=== PATIENT | male | born 1955 | race Caucasian/White ===

== ENCOUNTER 2018-10-28 08:39 | Day surgery (SDC) | payer OTHER ==
[~2018-10-28 08:39] MED LIST: Lactated Ringers 1,000 ML IV SCH; Sodium Chloride 0.9% 10 ML SDV IV PRN; Sodium Chloride 0.9% 10 ML Syringe FLUSH PRN; Sodium Chloride 0.9% 2.5 ML Syringe FLUSH PRN; ceFAZolin 1 GM in Premix Bag 1 BAG IV ONE
--- NOTE | 2018-10-28 10:42 | PCM.PREANE ---
Preanesthetic Assessment - Anesthesia/Transfusion/Family Hx Anesthesia History: Prior Anesthesia Without Reaction Family History of Anesthesia Reaction: No Transfusion History: No Prior Transfusion(s) - Review of Systems General: No Symptoms Pulmonary: No Symptoms Cardiovascular: No Symptoms Gastrointestinal: No Symptoms Neurological: No Symptoms Other: Reports: None - Physical Assessment NPO Status Date: 10/27/18 NPO Status Time: 22:30 O2 Sat by Pulse Oximetry: 97 Respiratory Rate: 16 Vital Signs: Last Vital Signs Temp 206.6 F H 10/28/18 08:50 Pulse 68 10/28/18 08:50 Resp 16 10/28/18 08:50 BP 131/83 10/28/18 08:50 Pulse Ox 97 10/28/18 08:50 Height: 5 ft 10 in Weight: 107.501 kg ASA Class: 2 Mental Status: Alert & Oriented x3 Airway Class: Mallampati = 2 Dentition: Reports: [place](s), Bridge ROM/Head Extension: Full Lungs: Clear to Auscultation, Normal Respiratory Effort Cardiovascular: Regular Rate, Regular Rhythm - Allergies Allergies/Adverse Reactions: Allergies Allergy/AdvReac Type Severity Reaction Status Date / Time Tetracyclines Allergy Stomach Verified 10/25/18 16:17 Upset - Blood Blood Available: No - Anesthesia Plan Pre-Op Medication Ordered: None - Acknowledgements Anesthesia Type Planned: General Anesthesia Pt an Appropriate Candidate for the Planned Anesthesia: Yes Alternatives and Risks of Anesthesia Discussed w Pt/Guardian: Yes Pt/Guardian Understands and Agrees with Anesthesia Plan: Yes Additional Comments: anes prob list: copd-uses inhalers, never on O2, no hospitilizations; chronic LBP-uses muscle relaxant prn, GERD, was tested for GAYE a long time ago- was not recommended to be on CPAP, does snore at night and has frequent awakenings. PLAN: ga/lma PreAnesthesia Questionnaire HEENT History: Reports: Other (See Below) Other HEENT History: wears glasses, sarah hearing aids Cardiovascular History: Reports: None Respiratory History: Reports: COPD Gastrointestinal History: Reports: GERD Genitourinary History: Reports: Prostate Disorder Other Genitourinary History: urgency Musculoskeletal History: Reports: Back Pain, Chronic, Fracture Other Musculoskeletal History: hx fx clavicle Neurological History: Reports: Head Trauma, Other (See Below) Other Neuro History: states head injury in the past Psychiatric History: Reports: Anxiety, PTSD Endocrine/Metabolic History: Reports: Obesity/BMI 30+ Hematologic History: Reports: None Immunologic History: Reports: None Oncologic (Cancer) History: Reports: None Dermatologic History: Reports: None - Past Surgical History Head Surgeries/Procedures: Reports: None HEENT Surgical History: Reports: None Cardiovascular Surgical History: Reports: None Respiratory Surgical History: Reports: None GI Surgical History: Reports: None Male Surgical History: Reports: TURP-Transurethral Resection of Prostate Musculoskeletal Surgical History: Reports: Carpal Tunnel, Other (See Below) Other Musculoskeletal Surgeries/Procedures:: hx sarah carpal tunnel release, rt hand surgery Oncologic Surgical History: Reports: None Dermatological Surgical History: Reports: None - SUBSTANCE USE Smoking Status *Q: Former Smoker Tobacco Use Within Last Twelve Months: No Recreational Drug Use History: No - HOME MEDS Home Medications: Home Meds Albuterol [Ventolin HFA] 1 - 2 puff INH ASDIRECTED PRN 09/22/18 [History] EPINEPHrine [Epipen] 1 injection SUBCUT ASDIRECTED PRN 09/22/18 [History] Pantoprazole Sodium 40 mg PO DAILY 09/22/18 [History] Tamsulosin HCl 0.4 mg PO DAILY 09/22/18 [History] - CURRENT (IN HOUSE) MEDS Current Meds: Current Medications Lactated Ringer's (Ringers, Lactated) 1,000 mls @ 100 mls/hr IV ASDIRECTED FOREIGN Last Admin: 10/28/18 09:00 Dose: 100 mls/hr Sodium Chloride (Saline Flush) 10 ml FLUSH ASDIRECTED PRN PRN Reason: Keep Vein Open Sodium Chloride (Normal Saline) 10 ml IV ASDIRECTED PRN PRN Reason: IV Use Sodium Chloride (Saline Flush) 2.5 ml FLUSH ASDIRECTED PRN PRN Reason: Keep Vein Open Discontinued Medications Lactated Ringer's (Ringers, Lactated) 1,000 mls @ 100 mls/hr IV ASDIRECTED FOREIGN Cefazolin Sodium/Dextrose 1 gm (/ Premix) 50 mls @ 100 mls/hr IV ONCALL ONE Stop: 09/28/18 06:29 Sodium Chloride (Saline Flush) 2.5 ml FLUSH ASDIRECTED PRN PRN Reason: Keep Vein Open Sodium Chloride (Normal Saline) 10 ml IV ASDIRECTED PRN PRN Reason: IV Use
[2018-10-28] MEDS ORDERED: Midazolam 1 MG/ML 2 ML SDV ONE (11:25)
[2018-10-28] MEDS ORDERED: Lidocaine 2% 5 ML SDV ONE (11:25)
[2018-10-28] MEDS ORDERED: Dexamethasone 4 MG/ML 5 ML MDV ONE (11:25)
[2018-10-28] MEDS ORDERED: Ondansetron 4 MG/2 ML SDV ONE (11:25)
[2018-10-28] MEDS ORDERED: Rocuronium 100 MG/10 ML Syringe ONE (11:25)
[2018-10-28] MEDS ORDERED: Propofol 200 MG/20 ML SDV ONE (11:25)
[2018-10-28] MEDS ORDERED: fentaNYL 250 MCG/5 ML SDV ONE (11:26)
[2018-10-28] MEDS ORDERED: ceFAZolin 1 GM Vial ONE (12:51)
[2018-10-28] MEDS ORDERED: Ketorolac 30 MG/ML SDV ONE (13:22)
[2018-10-28] MEDS ORDERED: EPINEPHRINE SUBCUT PRN (13:32)
--- NOTE | 2018-10-28 13:50 | OR ---
SURGEON: Sherley Alexander M.D. DATE OF PROCEDURE: 10/28/2018 PREOPERATIVE DIAGNOSIS: Bladder neck contracture. POSTOPERATIVE DIAGNOSIS: Bladder neck contracture. OPERATION: Bladder neck resection. DESCRIPTION OF PROCEDURE: The patient was given general anesthesia. He was in dorsal lithotomy position, prepped and draped in sterile drapes. The 24, 26 and 28-Algerian sounds were passed through to the neck of the bladder. The 26-Algerian continuous flow resectoscope was then introduced all the way up to the neck of the bladder, which was very narrow. The hot knife was used to cut through that into the bladder. Then, the loop was introduced in the resectoscope and the neck of the bladder was resected. No significant bleeding was encountered. A few spots were fulgurated. The specimen was submitted and an 18-Algerian Cooper catheter was placed in. He will be instructed to take the catheter out in 2 days. He is to come back after that as needed. KYLIE / ROBERT /[id number]
--- NOTE | 2018-10-28 14:50 | PCM.POSTAN ---
POST ANESTHESIA ASSESSMENT - MENTAL STATUS Mental Status: Alert, Oriented - RESPIRATORY Respiratory Status: Respiratory Rate WNL, Airway Patent, O2 Saturation Stable, Supplemental Oxygen - CARDIOVASCULAR CV Status: Pulse Rate WNL, Blood Pressure Stable - GASTROINTESTINAL GI Status: No Symptoms - POST OP HYDRATION Hydration Status: Adequate & Stable
--- NOTE | 2018-10-28 14:55 | PCM48HPAN ---
Post Anesthesia Note - EVALUATION WITHIN 48HRS OF ANESTHETIC Vital Signs in Normal Range: Yes Patient Participated in Evaluation: Yes Respiratory Function Stable: Yes Airway Patent: Yes Cardiovascular Function Stable: Yes Hydration Status Stable: Yes Pain Control Satisfactory: Yes Nausea and Vomiting Control Satisfactory: Yes Mental Status Recovered: Yes Resp Rate: 14
[2018-10-29] MEDS ORDERED: Tamsulosin 0.4 MG Cap.ER PO SCH (09:00)
[2018-10-29] MEDS ORDERED: Pantoprazole 40 MG Tab.CR PO SCH (09:00)
== END 2018-10-28 15:45 | disposition home or self-care (01) ==
LOC: MW.SDS 08:39
PROVIDERS: ATTEND Urology
DX: N32.0 Bladder-neck obstruction (principal); J44.9 Chronic obstructive pulmonary disease, unspecified; K21.9 Gastro-esophageal reflux disease without esophagitis; N40.0 Benign prostatic hyperplasia without lower urinary tract symptoms; I10 Essential (primary) hypertension; E66.9 Obesity, unspecified; Z68.34 Body mass index [BMI] 34.0-34.9, adult; Z90.79 Acquired absence of other genital organ(s); Z88.1 Allergy status to other antibiotic agents; Z87.891 Personal history of nicotine dependence; Z79.899 Other long term (current) drug therapy; Z88.8 Allergy status to other drugs, medicaments and biological substances
CPT/HCPCS: 52500; J0690; J1100; J1885; J2001; J2250; J2405; J2704; J3010; J7120; 00912